=== PATIENT | female | born 1985 | race Caucasian/White ===

== ENCOUNTER 2019-09-20 06:41 | Day surgery (SDC) | payer MEDICAID ==
[~2019-09-20] VITALS: Ht 170.2 cm; Wt 68.0 kg
[2019-09-20] MEDS ORDERED: CYMBALTA20 MG PO (07:28)
[2019-09-20] MEDS ORDERED: PEPCID40 MG PO (07:28)
[2019-09-20] MEDS ORDERED: BUTALB-APAP-CA1 EACH PO (07:29)
[2019-09-20] MEDS ORDERED: OMEPRAZOLE40 MG PO (07:29)
[2019-09-20 07:30] LABS: HEMATOCRIT 42.4 % (36.0-48.0); HEMOGLOBIN 13.8 g/dL (12-16); MCH 29.9 pg (26.0-34.0); MCHC 32.5 g/dL (31.0-37.0); MCV 91.8 fL (80.0-100.0); MEAN PLATELET VOLUME 10.1 fL (7.4-10.4); RBC 4.62 10x6/uL (4.00-5.40); RDW 14.8 % (11.5-14.5); WBC 15.3 10x3/uL (4.8-10.8)
[2019-09-20] MEDS ORDERED: HYDROXYZINE HCL10 MG PO (07:30)
[2019-09-20] MEDS ORDERED: ALBUTEROL SULF8.5 GM INH (07:31)
[2019-09-20] MEDS ORDERED: SYMBICORT 16010.2 GM INH (07:33)
[2019-09-20 07:44] VITALS: BP 115/74; Ht 170.2 cm; Wt 68.0 kg
--- NOTE | 2019-09-20 10:55 | NUR ---
1030 OPA DISCONTINUED BY DIGITAL DESIGNER
--- NOTE | 2019-09-20 11:43 | NUR ---
1145 PATIENT SAO2 AFTER DUONED UPDRAFT 95% ROOM AIR
--- NOTE | 2019-09-20 11:48 | NUR ---
1147 OK TO DISCHARGE TO OPD PER DR BRYANT
--- NOTE | 2019-09-20 12:51 | NUR ---
DC INSTRUCTIONS GIVEN TO PT. STATES UNDERSTANDING. DC'D IV CATH FULLY INTACT.
--- NOTE | 2019-09-20 13:25 | NUR ---
PT LEFT UNIT VIA WC AT 1314
--- NOTE | 2019-10-18 09:05 | OP ---
PATIENT NAME: JUVENAL RUSSELL MEDICAL RECORD: [id number] :81 LOCATION:[facility] ADMISSION DATE: SURGEON: SHANA TURK MD DATE OF OPERATION: 09/20/2019 PREOPERATIVE DIAGNOSES: Nasal obstruction, turbinate hypertrophy. POSTOPERATIVE DIAGNOSES: Nasal obstruction, turbinate hypertrophy. PROCEDURE: Bilateral inferior turbinate reduction. SURGEON: Shana Turk MD ANESTHESIA: General orotracheal. BLOOD LOSS: 2 cc. SPECIMENS: None. NASAL PACKING: None. COMPLICATIONS: None. DISPOSITION: Recovery stable. PROCEDURE IN DETAIL: She was brought to the operating room and placed in supine position, sedated and intubated by anesthesia. The table was turned 90 degrees. Head drape was applied. She was positioned for nasal surgery. Both sides of the nose were examined. Using a headlight and nasal speculum, the inferior turbinates were injected with a total of less than 1 cc of 1% lidocaine with 1:100,000 epinephrine on a 1-1/2 inch 27-gauge needle and then 2 Afrin pledgets were placed on each side of the nose. She was positioned, prepped and draped in usual fashion. Then, the pledgets were removed. Using a headlight and nasal speculum nose was examined. Minimal septal deviation. Floor of the nose was normal. Turbinates were normal, but large. No masses, polyps, or drainage. Both the inferior turbinates were medialized and infractured with a freer and then a [place]enwald was used to take down the inferior redundant portion of the turbinate giving a good large airway back to the nasopharynx on both sides. Suction cautery on a setting of 25 was used to stop bleeding on both inferior turbinates. They were both outfractured with a [place]mita elevator. Nose was examined, a little bit of the polypoid changes posteriorly. Both inferior turbinates were cauterized with suction cautery and a good wide open nasal cavity view back to the nasopharynx on both sides. No bleeding. No packing was placed. She was awakened, extubated, and transported to recovery in good condition. No complications. TRANSINT:[id number] Voice Confirmation ID: [id number] DOCUMENT ID: [id number] OPERATIVE REPORT [id number] DREWJUVENAL ABDI SHANA TURK MD at 0905 CC: [id number] DICTATION DATE: 09/20/19 1025 DOBBY LOOMS PEGGER: 09/20/19 1043 [facility] 09/20/19 [facility] [address] [place] [address]
--- NOTE | 2019-10-18 09:05 | HP ---
PATIENT: LORETTA RUSSELL MEDICAL RECORD: [id number] ACCOUNT: [id number] LOCATION:[facility] : 81 ADMISSION DATE: 09/20/19 PCP: OCTAVIA KUO MD HISTORY AND PHYSICAL EXAMINATION PREOPERATIVE HISTORY AND PHYSICAL HISTORY: Loretta is a 33 years old. She has chronic nasal congestion and refractory to medical management. She has been admitted for bilateral inferior turbinate reduction. PAST MEDICAL HISTORY: Reviewed, on the chart. PAST SURGICAL HISTORY: Includes hysterectomy, foot surgery. CURRENT MEDICATIONS: Include hydrocodone and nabumetone. ALLERGIES: SULFA. PHYSICAL EXAMINATION: GENERAL: She is healthy-appearing, developmentally normal. FACE: Normal, symmetric, no lesions. EYES: Sclerae and conjunctivae are normal. EARS: Canals and TMs normal. NOSE: Has some mild septal deviation, but really large inferior turbinates. ORAL CAVITY AND OROPHARYNX: No masses, polyps, or lesions. No trismus. NECK: No masses, no adenopathy. CHEST: Clear. CARDIOVASCULAR: Regular rate and rhythm, no murmur. EXTREMITIES: Normal. IMPRESSION: Nasal obstruction, turbinate hypertrophies, and some rhinitis. PLAN: Bilateral inferior turbinate reduction. TRANSINT:[id number] Voice Confirmation ID: [id number] DOCUMENT ID: [id number] SHANA ZABALA MD at 0905 CC: [id number] DICTATION DATE: 09/16/19 1435 FILTER SCREEN CLEANER: 09/16/19 1616 [facility] 09/20/[address] [address]
== END 2019-09-20 13:14 | disposition home or self-care (01) ==
LOC: D.OPS 06:41 → D.PAN 08:45 → D.OPS 08:45 → D.PAN 09:00 → D.OPS 09:00
PROVIDERS: Anesthesiology; ATTEND Otolaryngology
DX: J34.89 Other specified disorders of nose and nasal sinuses (principal); J34.3 Hypertrophy of nasal turbinates